=== PATIENT | male | born 1970 | race African-American/Black ===

== ENCOUNTER 2017-06-14 20:48 | Emergency (ER) | payer MEDICAID ==
[~2017-06-14] VITALS: Ht 188 cm; Wt 89.0 kg
[~2017-06-14 20:48] MED LIST: HIV meds; NAPR500T8 PO
[2017-06-14 21:02] VITALS: BP 134/89
--- NOTE | 2017-06-15 04:00 | ED.ADGEN ---
Past History Past Medical History: HIV Past Surgical History: Other Smoking: Cigarettes, Less than 1pk/day Alcohol Use: Rarely Drug Use: None Adult General Chief Complaint Chief Complaint Impacted right ear canal HPI HPI Patient is a 47-year-old -[place] male who presents with complaints of acted right ear canal and pressure the past 2 weeks. No other acute symptoms or complaints.[] Review of Systems Review of Systems Review symptoms as per history of present illness. Allergies Allergies Allergies Coded Allergies Type Severity Reaction Last Updated Verified No Known Drug Allergies 01/04/16 No Physical Exam Physical Exam Constitutional: Well developed, well nourished, no acute distress, non-toxic appearance. [] HENT: Normocephalic, atraumatic, bilateral external ears normal, right TM cerumen impaction oropharynx moist, no oral exudates, nose normal. [] Eyes: PERRLA, EOMI, conjunctiva normal, no discharge. [] Extremities: No tenderness, no cyanosis, no clubbing, ROM intact, no edema. [] Neurologic: Alert and oriented X 3, normal motor function, normal sensory function, no focal deficits noted. [] Psychologic: Affect normal, judgement normal, mood normal. [] Current Patient Data Vital Signs Vital Signs Date Time Temp Pulse Resp B/P (MAP) Pulse Ox O2 Delivery O2 Flow Rate FiO2 06/14/17 21:02 97.7 81 16 97 Room Air EKG EKG [] Radiology/Procedures Radiology/Procedures [] Course & Med Decision Making Course & Med Decision Making Pertinent Labs and Imaging studies reviewed. (See chart for details) [Patient instructed follow-up with PCP and/or he ENT for ear canal disimpaction] Final Impression Final Impression [1. R Ear cerumen impaction] Problems: Dragon Disclaimer Dragon Disclaimer This electronic medical record was generated, in whole or in part, using a voice recognition dictation system. ZAHRA RASHID DO Jun 15, 2017 04:00
== END 2017-06-14 21:13 | disposition home or self-care (01) ==
LOC: ER 20:48
DX: H61.21 Impacted cerumen, right ear (principal); F17.210 Nicotine dependence, cigarettes, uncomplicated; Z21 Asymptomatic human immunodeficiency virus [HIV] infection status
CPT/HCPCS: 99281

== ENCOUNTER 2018-04-29 19:04 | Emergency (ER) | payer MEDICAID ==
[~2018-04-29] VITALS: Ht 188 cm; Wt 94.8 kg
[2018-04-29 20:01] LABS: BASO # 0.1 x10^3/uL (0.0-0.2); BASO % 1 % (0-3); EOS # 0.1 x10^3/uL (0.0-0.7); EOS % 2 % (0-3); HEMATOCRIT 40.4 % (39.0-53.0); HEMOGLOBIN 13.4 g/dL (13.0-17.5); LYMPH # 2.8 x10^3/uL (1.0-4.8); LYMPH % 48 % (24-48); MEAN CORPUSCULAR HEMOGLOBIN 27 pg (25-35); MEAN CORPUSCULAR HGB CONC 33 g/dL (31-37); MEAN CORPUSCULAR VOLUME 81 fL (79-100); MONO # 0.7 x10^3/uL (0.0-1.1); MONO % 12 % (0-9); NEUT # 2.1 x10^3uL (1.8-7.7); NEUT % 36 % (31-73); PLATELET COUNT 270 x10^3/uL (140-400); RED BLOOD COUNT 4.99 x10^6/uL (4.30-5.70); RED CELL DISTRIBUTION WIDTH 15.2 % (11.5-14.5); WHITE BLOOD COUNT 5.8 x10^3/uL (4.0-11.0)
[2018-04-29 20:04] LABS: ALBUMIN 3.6 g/dL (3.4-5.0); ALBUMIN/GLOBULIN RATIO 0.8 (1.0-1.7); CALCIUM 8.7 mg/dL (8.5-10.1); GFR 95.7; POTASSIUM 3.5 mmol/L (3.5-5.1); TOTAL BILIRUBIN 0.3 mg/dL (0.2-1.0)
[2018-04-29] MEDS: IV NORMAL SALINE 1,000ML 1,000 ML IV ONE (20:15)
--- NOTE | 2018-04-29 20:26 | RAD ---
PQRS Compliance statement: One or more of the following individualized dose reduction techniques were utilized for this examination: 1. Automated exposure control. 2. Adjustment of the mA and/or kV according to patient size. 3. Use of iterative reconstruction technique. Indication:Dizziness, Hx hypertension TECHNIQUE: CT head without IV contrast COMPARISON:None FINDINGS: No pathologic extra-axial or intra-axial fluid collection. The ventricles and basal cisterns are within normal limits. No acute intracranial bleed. No focal loss of kunz-white differentiation. Visualized orbits within normal limits. 4.0 x 1.3 cm posterior scalp lipoma. No suspicious calvarial lesion. Visualized paranasal sinuses and mastoid air cells are clear. IMPRESSION: No acute intracranial process. If concern for acute ischemic stroke is high, please consider MRI brain. Electronically signed by: Sumit Mahmood DO (04/29/2018 8:23 PM) [facility]
[2018-04-29 20:30] LABS: BACTERIA,URINE 0 /HPF (0-FEW); BILIRUBIN,URINE NEG (NEG); CLARITY,URINE CLEAR; COLOR,URINE YELLOW; GLUCOSE,URINE NEG (NEG); NITRITE,URINE NEG (NEG); SQUAMOUS EPITHELIAL CELL,UR OCC /LPF; UROBILINOGEN,URINE 2 mg/dL (0.2 mg/dL); WBC,URINE OCC /HPF (0-4)
[2018-04-29 20:32] LABS: AMPHETAMINE/METHAMPHETAMINE NEG (NEG); BARBITURATES NEG (NEG); BENZODIAZEPINES NEG (NEG); CANNABINOIDS NEG (NEG); COCAINE POS (NEG); METHADONE NEG (NEG); OPIATES NEG (NEG); PHENCYCLIDINE NEG (NEG)
--- NOTE | 2018-04-29 20:57 | PHYS DOC ---
Past History Past Medical History: HIV, Hypertension Past Surgical History: Hysterectomy Smoking: Cigarettes, Less than 1pk/day Alcohol Use: Heavy Additional Alcohol Information: 4 drinks a day, usually wine Drug Use: None Adult General Chief Complaint Chief Complaint: DIZZY/LIGHT HEADED HPI HPI 48-year-old male presents with dizziness. Patient states he has had intermittent dizziness for the last couple weeks. He was diagnosed with hypertension recently placed on medications. He has not started his medications yet. Today the patient feels like he has been slightly more dizzy. He describes this as a lightheaded, off balance feeling. He denies any numbness, tingling, weakness, headache. The patient does admit to drinking "a moderate amount" of alcohol yesterday. He does not usually drink heavily. He denies fever or chills. Review of Systems Review of Systems Constitutional: Denies fever or chills [] Eyes: Denies change in visual acuity, redness, or eye pain [] HENT: Denies nasal congestion or sore throat [] Respiratory: Denies cough or shortness of breath [] Cardiovascular: No additional information not addressed in HPI [] GI: Denies abdominal pain, nausea, vomiting, bloody stools or diarrhea [] : Denies dysuria or hematuria [] Musculoskeletal: Denies back pain or joint pain [] Integument: Denies rash or skin lesions [] Neurologic: Dizziness[] Endocrine: Denies polyuria or polydipsia [] All other systems were reviewed and found to be within normal limits, except as documented in this note. Current Medications Current Medications Current Medications Medications (Trade) Dose Ordered Sig/[facility] Start Time Stop Time Status Last Admin Dose Admin Sodium Chloride 1,000 ml @ 1,000 mls/hr 1X ONCE 04/29/18 20:00 04/29/18 20:59 04/29/18 20:15 1,000 MLS/HR Allergies Allergies Allergies Coded Allergies Type Severity Reaction Last Updated Verified No Known Drug Allergies 01/04/16 No Physical Exam Physical Exam Constitutional: Well developed, well nourished, no acute distress, non-toxic appearance. [] HENT: Normocephalic, atraumatic, bilateral external ears normal, oropharynx moist, no oral exudates, nose normal. [] Eyes: PERRLA, EOMI, conjunctiva normal, no discharge. [] Neck: Normal range of motion, no tenderness, supple, no stridor. [] Cardiovascular:Heart rate regular rhythm, no murmur [] Lungs & Thorax: Bilateral breath sounds clear to auscultation [] Abdomen: Bowel sounds normal, soft, no tenderness, no masses, no pulsatile masses. [] Skin: Warm, dry, no erythema, no rash. [] Back: No tenderness, no CVA tenderness. [] Extremities: No tenderness, no cyanosis, no clubbing, ROM intact, no edema. [] Neurologic: Alert and oriented X 3, normal motor function, normal sensory function, no focal deficits noted. [] Psychologic: Affect normal, judgement normal, mood normal. [] Current Patient Data Vital Signs Vital Signs Date Time Temp Pulse Resp B/P (MAP) Pulse Ox O2 Delivery O2 Flow Rate FiO2 04/29/18 19:10 98.8 80 20 96 Room Air Lab Results Laboratory Tests Test 04/29/18 19:20 04/29/18 20:18 White Blood Count 5.8 x10^3/uL (4.0-11.0) Red Blood Count 4.99 x10^6/uL (4.30-5.70) Hemoglobin 13.4 g/dL (13.0-17.5) Hematocrit 40.4 % (39.0-53.0) Mean Corpuscular Volume 81 fL (79-100) Mean Corpuscular Hemoglobin 27 pg (25-35) Mean Corpuscular Hemoglobin Concent 33 g/dL (31-37) Red Cell Distribution Width 15.2 % (11.5-14.5) H Platelet Count 270 x10^3/uL (140-400) Neutrophils (%) (Auto) 36 % (31-73) Lymphocytes (%) (Auto) 48 % (24-48) Monocytes (%) (Auto) 12 % (0-9) H Eosinophils (%) (Auto) 2 % (0-3) Basophils (%) (Auto) 1 % (0-3) Neutrophils # (Auto) 2.1 x10^3uL (1.8-7.7) Lymphocytes # (Auto) 2.8 x10^3/uL (1.0-4.8) Monocytes # (Auto) 0.7 x10^3/uL (0.0-1.1) Eosinophils # (Auto) 0.1 x10^3/uL (0.0-0.7) Basophils # (Auto) 0.1 x10^3/uL (0.0-0.2) Sodium Level 140 mmol/L (136-145) Potassium Level 3.5 mmol/L (3.5-5.1) Chloride Level 103 mmol/L (98-107) Carbon Dioxide Level 29 mmol/L (21-32) Anion Gap 8 (6-14) Blood Urea Nitrogen 10 mg/dL (8-26) Creatinine 1.0 mg/dL (0.7-1.3) Estimated GFR (Cockcroft-Gault) 95.7 BUN/Creatinine Ratio 10 (6-20) Glucose Level 114 mg/dL (70-99) H Calcium Level 8.7 mg/dL (8.5-10.1) Total Bilirubin 0.3 mg/dL (0.2-1.0) Aspartate Amino Transferase (AST) 36 U/L (15-37) Alanine Aminotransferase (ALT) 34 U/L (16-63) Alkaline Phosphatase 78 U/L (46-116) Total Protein 8.0 g/dL (6.4-8.2) Albumin 3.6 g/dL (3.4-5.0) Albumin/Globulin Ratio 0.8 (1.0-1.7) L Urine Opiates Screen Neg (NEG) Urine Methadone Screen Neg (NEG) Urine Barbiturates Neg (NEG) Urine Phencyclidine Screen Neg (NEG) Urine Amphetamine/Methamphetamine Neg (NEG) Urine Benzodiazepines Screen Neg (NEG) Urine Cocaine Screen Pos (NEG) Urine Cannabinoids Screen Neg (NEG) Ethyl Alcohol Level < 10 mg/dL (0-10) Urine Ethyl Alcohol Neg (NEG) Urine Collection Type Unknown Urine Color Yellow Urine Clarity Clear Urine pH 6.5 Urine Specific Randall 1.010 Urine Protein Neg (NEG-TRACE) Urine Glucose (UA) Neg mg/dL (NEG) Urine Ketones (Stick) Neg mg/dL (NEG) Urine Blood Small (NEG) Urine Nitrite Neg (NEG) Urine Bilirubin Neg (NEG) Urine Urobilinogen Dipstick 2 mg/dL (0.2 mg/dL) Urine Leukocyte Esterase Neg (NEG) Urine RBC 11-20 /HPF (0-2) Urine WBC Occ /HPF (0-4) Urine Squamous Epithelial Cells Occ /LPF Urine Bacteria 0 /HPF (0-FEW) EKG EKG [] Radiology/Procedures Radiology/Procedures [] Impressions: PQRS Compliance statement: One or more of the following individualized dose reduction techniques were utilized for this examination: 1. Automated exposure control. 2. Adjustment of the mA and/or kV according to patient size. 3. Use of iterative reconstruction technique. Indication:Dizziness, Hx hypertension TECHNIQUE: CT head without IV contrast COMPARISON:None FINDINGS: No pathologic extra-axial or intra-axial fluid collection. The ventricles and basal cisterns are within normal limits. No acute intracranial bleed. No focal loss of kunz-white differentiation. Visualized orbits within normal limits. 4.0 x 1.3 cm posterior scalp lipoma. No suspicious calvarial lesion. Visualized paranasal sinuses and mastoid air cells are clear. IMPRESSION: No acute intracranial process. If concern for acute ischemic stroke is high, please consider MRI brain. Electronically signed by: Sumit Benitez DO (04/29/2018 8:23 PM) [facility] DICTATED AND SIGNED BY: SUMIT BENITEZ DO DATE: 04/29/182012 CC: ZAHRA ALVAREZ DO; PCP,YADIRA Course & Med Decision Making Course & Med Decision Making Pertinent Labs and Imaging studies reviewed. (See chart for details) The patient's labs are unremarkable. His urinalysis is negative for infection. His urine drug screen shows an alcohol less than 10, but it is positive for cocaine. I suspect the cocaine use is the reason the patient feels "weird and dizzy". It is likely contributing to his elevated blood pressure as well. I advised he stop using drugs. He is stable for discharge at this time [] Dragon Disclaimer Dragon Disclaimer This electronic medical record was generated, in whole or in part, using a voice recognition dictation system. Departure Departure: Referrals: PCP,YADIRA (PCP) ZAHRA ALVAREZ DO Apr 29, 2018 20:57
[2018-04-29 21:10] VITALS: BP 171/84
== END 2018-04-29 21:15 | disposition home or self-care (01) ==
LOC: ER 19:04
DX: R42 Dizziness and giddiness (principal); F14.90 Cocaine use, unspecified, uncomplicated; I10 Essential (primary) hypertension; F17.210 Nicotine dependence, cigarettes, uncomplicated; F10.20 Alcohol dependence, uncomplicated; Y90.0 Blood alcohol level of less than 20 mg/100 ml
CPT/HCPCS: 36415; 70450; 80053; 80307; 81001; 85025; 96360; G0480; 99285-25; G0479; J7030

== ENCOUNTER 2018-10-16 09:02 | Emergency (ER) | payer OTHER, MEDICAID ==
[~2018-10-16] VITALS: Ht 188 cm; Wt 95.6 kg
[2018-10-16 09:05] VITALS: BP 146/102
[2018-10-16 09:51] LABS: BASO # 0.1 x10^3/uL (0.0-0.2); BASO % 1 % (0-3); EOS # 0.1 x10^3/uL (0.0-0.7); EOS % 1 % (0-3); HEMATOCRIT 43.9 % (39.0-53.0); HEMOGLOBIN 14.7 g/dL (13.0-17.5); LYMPH # 3.7 x10^3/uL (1.0-4.8); LYMPH % 40 % (24-48); MEAN CORPUSCULAR HEMOGLOBIN 28 pg (25-35); MEAN CORPUSCULAR HGB CONC 34 g/dL (31-37); MEAN CORPUSCULAR VOLUME 82 fL (79-100); MONO # 0.5 x10^3/uL (0.0-1.1); MONO % 5 % (0-9); NEUT # 4.9 x10^3uL (1.8-7.7); NEUT % 53 % (31-73); PLATELET COUNT 309 x10^3/uL (140-400); RED BLOOD COUNT 5.32 x10^6/uL (4.30-5.70); WHITE BLOOD COUNT 9.2 x10^3/uL (4.0-11.0)
--- NOTE | 2018-10-16 10:03 | RAD ---
CT brain without contrast. HISTORY: Numbness of both hands, paresthesias CT scan of the brain was done without contrast. Sinuses are clear. There is no skull fracture. There is no intracranial hemorrhage or subdural hematoma. There is no mass or shift of the midline. An acute CVA is not identified. Ventricles are normal in size. There has been no change compared to the old study from April 29, 2018. IMPRESSION: 1. No intracranial hemorrhage or mass or acute finding noted. PQRS Compliance Statement: One or more of the following individualized dose reduction techniques were utilized for this examination: 1. Automated exposure control 2. Adjustment of the mA and/or kV according to patient size 3. Use of iterative reconstruction technique Electronically signed by: Chuy Nicole MD (10/16/2018 10:01 AM) [facility]
[2018-10-16 10:05] LABS: ALBUMIN/GLOBULIN RATIO 0.8 (1.0-1.7); CALCIUM 8.8 mg/dL (8.5-10.1); CREATININE 0.8 mg/dL (0.7-1.3); GFR 123.8; MAGNESIUM 1.8 mg/dL (1.8-2.4); POTASSIUM 3.6 mmol/L (3.5-5.1); TOTAL BILIRUBIN 0.2 mg/dL (0.2-1.0); TOTAL PROTEIN 8.8 g/dL (6.4-8.2)
[2018-10-16 10:39] LABS: BARBITURATES NEG (NEG); BENZODIAZEPINES NEG (NEG); CANNABINOIDS NEG (NEG); COCAINE POS (NEG); METHADONE NEG (NEG); OPIATES NEG (NEG); PHENCYCLIDINE NEG (NEG)
[2018-10-16 10:41] LABS: AMPHETAMINE/METHAMPHETAMINE NEG (NEG)
[2018-10-16 10:49] LABS: BILIRUBIN,URINE NEG (NEG); CLARITY,URINE CLEAR; COLOR,URINE YELLOW; GLUCOSE,URINE NEG (NEG)
[2018-10-16 10:50] LABS: BACTERIA,URINE 0 /HPF (0-FEW); NITRITE,URINE NEG (NEG); SQUAMOUS EPITHELIAL CELL,UR OCC /LPF; UROBILINOGEN,URINE 0.2 mg/dL (0.2 mg/dL); WBC,URINE OCC /HPF (0-4)
--- NOTE | 2018-10-16 10:57 | PHYS DOC ---
Past History Past Medical History: HIV, Hypertension, Prostatitis Past Surgical History: No Surgical History Smoking: Cigarettes, Less than 1pk/day Alcohol Use: Heavy Drug Use: None Adult General Chief Complaint Chief Complaint: Hands numbness HPI HPI Patient is a 48 year old male who presents with complaining of bilateral hands numbness since midnight. Patient has history of HIV since 2006 without eighths and taking 1 anti-HIV medication. Patient also drinking alcohol heavily for the last several years. Patient states for the last month and half he has had trouble with his walking and also intermittent episodes of bilateral fourth and fifth finger numbness with extension to his wrists as a mild intermittent problem that getting constant since midnight and he thinks he had stroke. Patient denies headache, focal weakness, chest pain, shortness of breath, blurred vision, fever and chills, nausea and vomiting. Review of Systems Review of Systems Constitutional: Denies fever or chills [] Eyes: Denies change in visual acuity, redness, or eye pain [] HENT: Denies nasal congestion or sore throat [] Respiratory: Denies cough or shortness of breath [] Cardiovascular: No additional information not addressed in HPI [] GI: Denies abdominal pain, nausea, vomiting, bloody stools or diarrhea [] : Denies dysuria or hematuria [] Musculoskeletal: Denies back pain or joint pain [] Integument: Denies rash or skin lesions [] Neurologic: Denies headache, focal weakness, reports sensory changes [] Endocrine: Denies polyuria or polydipsia [] All other systems were reviewed and found to be within normal limits, except as documented in this note. Allergies Allergies Allergies Coded Allergies Type Severity Reaction Last Updated Verified No Known Drug Allergies 01/04/16 No Physical Exam Physical Exam Constitutional: Well developed, well nourished, mild acute distress, non-toxic appearance. [] HENT: Normocephalic, atraumatic, oropharynx moist, no oral exudates, nose normal. [] Eyes: PERRLA, EOMI, conjunctiva normal, no discharge. [] Neck: Normal range of motion, no tenderness, supple, no stridor. [] Cardiovascular:Heart rate regular rhythm, no murmur [] Lungs & Thorax: Bilateral breath sounds clear to auscultation [] Abdomen: Bowel sounds normal, soft, no tenderness, no masses, no pulsatile masses. [] Skin: Warm, dry, no erythema, no rash. [] Back: No tenderness, no CVA tenderness. [] Extremities: No tenderness, no cyanosis, no clubbing, ROM intact, no edema. [] Neurologic: Alert and oriented X 3, normal motor function, subjective decrease of sensation in bilateral fourth and fifth fingers, no focal deficits noted. [] Psychologic: Affect anxious, judgement normal, mood normal. [] Current Patient Data Vital Signs Vital Signs Date Time Temp Pulse Resp B/P (MAP) Pulse Ox O2 Delivery O2 Flow Rate FiO2 10/16/18 09:05 98.4 107 24 95 Room Air Lab Results Laboratory Tests Test 10/16/18 09:34 10/16/18 10:20 White Blood Count 9.2 x10^3/uL (4.0-11.0) Red Blood Count 5.32 x10^6/uL (4.30-5.70) Hemoglobin 14.7 g/dL (13.0-17.5) Hematocrit 43.9 % (39.0-53.0) Mean Corpuscular Volume 82 fL (79-100) Mean Corpuscular Hemoglobin 28 pg (25-35) Mean Corpuscular Hemoglobin Concent 34 g/dL (31-37) Red Cell Distribution Width 16.0 % (11.5-14.5) H Platelet Count 309 x10^3/uL (140-400) Neutrophils (%) (Auto) 53 % (31-73) Lymphocytes (%) (Auto) 40 % (24-48) Monocytes (%) (Auto) 5 % (0-9) Eosinophils (%) (Auto) 1 % (0-3) Basophils (%) (Auto) 1 % (0-3) Neutrophils # (Auto) 4.9 x10^3uL (1.8-7.7) Lymphocytes # (Auto) 3.7 x10^3/uL (1.0-4.8) Monocytes # (Auto) 0.5 x10^3/uL (0.0-1.1) Eosinophils # (Auto) 0.1 x10^3/uL (0.0-0.7) Basophils # (Auto) 0.1 x10^3/uL (0.0-0.2) Sodium Level 139 mmol/L (136-145) Potassium Level 3.6 mmol/L (3.5-5.1) Chloride Level 102 mmol/L (98-107) Carbon Dioxide Level 27 mmol/L (21-32) Anion Gap 10 (6-14) Blood Urea Nitrogen 6 mg/dL (8-26) L Creatinine 0.8 mg/dL (0.7-1.3) Estimated GFR (Cockcroft-Gault) 123.8 BUN/Creatinine Ratio 8 (6-20) Glucose Level 117 mg/dL (70-99) H Calcium Level 8.8 mg/dL (8.5-10.1) Magnesium Level 1.8 mg/dL (1.8-2.4) Total Bilirubin 0.2 mg/dL (0.2-1.0) Aspartate Amino Transferase (AST) 19 U/L (15-37) Alanine Aminotransferase (ALT) 25 U/L (16-63) Alkaline Phosphatase 84 U/L (46-116) Creatine Kinase 172 U/L (39-308) Troponin I Quantitative < 0.017 ng/mL (0-0.055) Total Protein 8.8 g/dL (6.4-8.2) H Albumin 4.0 g/dL (3.4-5.0) Albumin/Globulin Ratio 0.8 (1.0-1.7) L Ethyl Alcohol Level < 10 mg/dL (0-10) Urine Opiates Screen Neg (NEG) Urine Methadone Screen Neg (NEG) Urine Barbiturates Neg (NEG) Urine Phencyclidine Screen Neg (NEG) Urine Amphetamine/Methamphetamine Neg (NEG) Urine Benzodiazepines Screen Neg (NEG) Urine Cocaine Screen Pos (NEG) Urine Cannabinoids Screen Neg (NEG) Urine Ethyl Alcohol Neg (NEG) EKG EKG [] Radiology/Procedures Radiology/Procedures [address] [address] IMAGING REPORT Signed PATIENT: JONO ALLISON ACCOUNT: [id number] : 1970 LOCATION: ER AGE: 48 SEX: M EXAM STATUS: REG ER ORD. PHYSICIAN: MNIO RAMESH MD REASON: paresthesia PROCEDURE: CT HEAD WO CONTRAST CT brain without contrast. HISTORY: Numbness of both hands, paresthesias CT scan of the brain was done without contrast. Sinuses are clear. There is no skull fracture. There is no intracranial hemorrhage or subdural hematoma. There is no mass or shift of the midline. An acute CVA is not identified. Ventricles are normal in size. There has been no change compared to the old study from April 29, 2018. IMPRESSION: 1. No intracranial hemorrhage or mass or acute finding noted. RS Compliance Statement: One or more of the following individualized dose reduction techniques were utilized for this examination: 1. Automated exposure control 2. Adjustment of the mA and/or kV according to patient size 3. Use of iterative reconstruction technique Electronically signed by: Roxanne Newby MD (10/16/2018 10:01 AM) [facility] DICTATED AND SIGNED BY: ROXANNE NEWBY MD DATE: 10/16/18 0958 CC: MINO RAMESH MD; PCP,UNKNOWN ~ Course & Med Decision Making Course & Med Decision Making Pertinent Labs and Imaging studies reviewed. (See chart for details) Evaluation of patient in ER showed 48-year-old male patient with history of HIV and complaining of numbness of his hand. Patient denies using drugs but his urine showing positive cocaine the same as his previous emergency room visits in March 2018. Labs and CT head was unremarkable. Patient instructed to follow- up with his HIV specialist and also quit drinking alcohol and using drugs and smoking cigarettes. Urine drug screen was positive for cocaine and patient previously denied using cocaine but later on admitted to use cocaine 2 days ago. Dragon Disclaimer Dragon Disclaimer This electronic medical record was generated, in whole or in part, using a voice recognition dictation system. Departure Departure: Impression: Primary Impression: Paresthesia of hand, bilateral Additional Impressions: Cocaine abuse Tobacco abuse Tobacco abuse counseling History of HIV-I infection History of hypertension Alcohol abuse Disposition: HOME, SELF-CARE (@1054) Condition: STABLE Referrals: PCP,UNKNOWN (PCP) Patient Instructions: Alcohol Problems, Cocaine Abuse and Chemical Dependency, Paresthesia, Smoking Cessation, Tips For Success Additional Instructions: Follow-up with your primary care physician in 3-5 days Return to ER if not getting better Problem Qualifiers MINO RAMESH MD Oct 16, 2018 10:57
== END 2018-10-16 10:59 | disposition home or self-care (01) ==
LOC: ER 09:02
DX: R20.2 Paresthesia of skin (principal); I10 Essential (primary) hypertension; F12.10 Cannabis abuse, uncomplicated; F17.210 Nicotine dependence, cigarettes, uncomplicated; F10.20 Alcohol dependence, uncomplicated; Z71.6 Tobacco abuse counseling; Y90.0 Blood alcohol level of less than 20 mg/100 ml
CPT/HCPCS: 36415; 70450; 80053; 80307; 81001; 82550; 83735; 84484; 85025; 99284; G0480

== ENCOUNTER 2018-12-25 04:31 | Emergency (ER) | payer OTHER ==
--- NOTE | 2018-12-25 04:33 | ED.ADGEN ---
Past History Past Medical History: HIV, Hypertension, Prostatitis Past Surgical History: No Surgical History Smoking: Cigarettes, Less than 1pk/day Alcohol Use: Heavy Drug Use: Cocaine Adult General Chief Complaint Chief Complaint "... I was cleaning my in my car...and coughing.. so I reached down to get bottle of water.. I accident grabbed the bottle .. but soon as it my mouth.. I knew it was not water.. I spit it out.. and vomited.. and rinse my mouth really well.. but I was worried .. so I came in to get checked... " HPI HPI Patient is a 48 year old male who presents with above hx of accidently in taking a mouth full of [employer]. Pt. accident ingested a mouth of viny l guard. Pt. has no symptoms but worried the more he thought about it. It has been in excess of an hour and half since ingestion. Pt. has medical hx. of HIV since 2005, on suppression. Last CD-4 normal and viral count undetectable. History of hypertension and prostatitis. Pt. does smoke, drinks alcohol. Patient normally follows at . Review of Systems Review of Systems Constitutional: Denies fever or chills [] Eyes: Denies change in visual acuity, redness, or eye pain [] HENT: Denies nasal congestion or sore throat [] Respiratory: History cough Cardiovascular: No additional information not addressed in HPI [] GI: Denies abdominal pain, nausea, vomiting, bloody stools or diarrhea [] : Denies dysuria or hematuria [] Musculoskeletal: Denies back pain or joint pain [] Integument: Denies rash or skin lesions [] Neurologic: Denies headache, focal weakness or sensory changes [] Endocrine: Denies polyuria or polydipsia [] All other systems were reviewed and found to be within normal limits, except as documented in this note. Family History Family History Noncontributory Current Medications Current Medications See nursing for home meds Allergies Allergies Allergies Coded Allergies Type Severity Reaction Last Updated Verified No Known Drug Allergies 01/04/16 No Physical Exam Physical Exam Constitutional: no acute distress, non-toxic appearance. [] HENT: Normocephalic, atraumatic, bilateral external ears normal, oropharynx moist, no oral exudates, nose normal. Dentures Eyes: PERRLA, EOMI, conjunctiva normal, no discharge. [] Neck: Normal range of motion, no tenderness, supple, no stridor. [] Cardiovascular:Heart rate regular rhythm, no murmur [] Lungs & Thorax: Bilateral breath sounds equal apex scattered wheezes auscultation [] Abdomen: Bowel sounds normal, soft, no tenderness, no masses, no pulsatile masses. [] Skin: Warm, dry, no erythema, no rash. [] Back: No tenderness, no CVA tenderness. [] Extremities: No tenderness, no cyanosis, no clubbing, ROM intact, no edema. [] Neurologic: Alert and oriented X 3, normal motor function, normal sensory function, no focal deficits noted. [] Psychologic: Affect anxious, judgement normal, mood normal. [] Current Patient Data Vital Signs Vital Signs Date Time Temp Pulse Resp B/P (MAP) Pulse Ox O2 Delivery O2 Flow Rate FiO2 12/25/18 04:40 62 18 96 Room Air EKG EKG [] Radiology/Procedures Radiology/Procedures [] Course & Med Decision Making Course & Med Decision Making Pertinent Labs and Imaging studies reviewed. (See chart for details). Reviewed findings with poison control advised only symptomatic care. [] Final Impression Final Impression 1. Accidental ingestion of [employer] auto guard vinyl product 2. History of HIV since 2005 3. Tobacco alcohol use\\ 4. Hypertension[] Dragon Disclaimer Dragon Disclaimer This electronic medical record was generated, in whole or in part, using a voice recognition dictation system. Discharge Summary Visit Information Final Diagnosis Problems Medical Problems: (1) Accidental ingestion of substance Status: Acute Brief Hospital Course Allergies Allergies Coded Allergies Type Severity Reaction Last Updated Verified No Known Drug Allergies 01/04/16 No Vital Signs Vital Signs Date Time Temp Pulse Resp B/P (MAP) Pulse Ox O2 Delivery O2 Flow Rate FiO2 12/25/18 04:40 62 18 96 Room Air Brief Hospital Course Mr. Allan is a 48 old male who presented with accidental ingestion of [employer] Vinyl protectant. Discharge Information Condition at Discharge: Improved, Stable Disposition/Orders: D/C to Home Dischare Medications Active Scripts Active Naproxen 500 Mg Tablet. 1 Tab PO Q12HR PRN Reported [HIV meds] Dragon Disclaimer This chart was dictated in whole or in part using Voice Recognition software in a busy, high-work load, and often noisy Emergency Department environment. It may contain unintended and wholly unrecognized errors or omissions. ELLEN WOOD MD Dec 25, 2018 04:33
[2018-12-25 04:40] VITALS: BP 144/94
== END 2018-12-25 05:05 | disposition home or self-care (01) ==
LOC: ER 04:31
DX: T65.891A Toxic effect of other specified substances, accidental (unintentional), initial encounter (principal); R05 Cough; I10 Essential (primary) hypertension; F17.210 Nicotine dependence, cigarettes, uncomplicated; F10.20 Alcohol dependence, uncomplicated; Y90.9 Presence of alcohol in blood, level not specified; Y92.89 Other specified places as the place of occurrence of the external cause
CPT/HCPCS: 99281

== ENCOUNTER 2020-08-26 21:29 | Emergency (ER) | payer OTHER ==
[~2020-08-26] VITALS: Ht 188 cm; Wt 96.5 kg
[2020-08-26] MEDS ORDERED: LABETALOL 20 MG/4 ML DISP.SYRIN. ONE (21:54)
[2020-08-26] MEDS ORDERED: ETOMIDATE 40 MG/20 ML VIAL. INJ ONE (22:15)
[2020-08-26] MEDS ORDERED: ROCURONIUM 50 MG/5 ML VIAL. IV ONE (22:15)
[2020-08-26] MEDS ORDERED: PROPOFOL 100 ML IV PRN (22:15)
[2020-08-26] MEDS ORDERED: LABETALOL 20 MG/4 ML DISP.SYRIN. IVP ONE (22:15)
--- NOTE | 2020-08-26 22:15 | RAD ---
Exam: Chest one view INDICATION: Post code TECHNIQUE: Frontal view of the chest Comparisons: None FINDINGS: Endotracheal tube with tip at the prosper. Heart is enlarged. Pulmonary vessels are within normal limits. Diffuse patchy bilateral airspace disease. No pleural effusion. IMPRESSION: 1. Endotracheal tube tip at the prosper, recommend retraction. 2. Diffuse patchy bilateral airspace disease. Electronically signed by: Jaren Humphreys MD (08/26/2020 10:12 PM) [facility]
[2020-08-26 22:24] VITALS: BP 226/156
--- NOTE | 2020-08-26 22:27 | RAD ---
EXAM: AP View of the chest DATE: 08/26/2020 10:05 PM INDICATION: Reason: s/p adjustment of ETT (22cm at gum line) / Spl. Instructions: / History: COMPARISON: 08/26/2020 FINDINGS/ IMPRESSION: ET tube tip terminates approximately 4 cm above the prosper. Bilateral parenchymal opacities are uncha nged. Cardiac mediastinal silhouette is also stable. Small left pleural effusion. No pneumothorax. Electronically signed by: Harpreet Vickers MD (08/26/2020 10:25 PM) [facility]
[2020-08-26] MEDS ORDERED: IV NORMAL SALINE 1,000ML 1,000 ML IV ONE (22:30)
--- NOTE | 2020-08-26 22:41 | PHYS DOC ---
Past History Past Medical History: CAD, HIV, Hypertension, MT, Prostatitis Additional Past Medical Histor: MT in Apr 2020 Past Medical History Limited secondary to cardiopulmonary arrest Past Surgical History: Pacemaker Additional Past Surgical Histo: MT s/p stent and pacemaker Apr 2020 Past Surgical History Limited secondary to cardiopulmonary arrest Smoking: Cigarettes, Less than 1pk/day Alcohol Use: Heavy Additional Alcohol Information: a few Smirnoff ices a day Drug Use: Cocaine Social History Limited secondary to cardiopulmonary arrest General Adult EDM: Chief Complaint: CPR/FULL ARREST HPI: HPI: Patient is a 50 year old male wiith pmh of HIV and prior CAD with stent placement presents via EMS following cardiopulmonary arrest at home. Around 2099, patient and his partner Ritchie were watching TV on the couch when the patient suddenly started breathing more deeply and gasping for air. His partner described the patient's eyes as appearing wide and glassy. His partner was unable to feel a pulse on patient's neck or wrist and so put him on the floor, called 911, and started chest compressions. Partner denied any concerns for medication overdoses or other illicit drug ingestions. Pt had about 3x "Smirnoff Ices" at home, prior to the event. Partner denies fever, cough, congestion, or known sick contacts at home. Denies known exposure to COVID-19. Paramedics arrived within a few minutes, and shocked the patient once with the AED with return of spontaneous circulation. EMS concerned for patient's "pinpoint" pupils. EMS gave Narcan in route with limited effect. Partner reports patient has a "pacemaker" that was placed at [place]. History of present illness limited secondary to cardiopulmonary arrest. Review of Systems: Review of Systems: Review of systems limited secondary to cardiopulmonary arrest. Family History: Family History: Unable to obtain due to patient's state. Current Medications: Current Meds: Current Medications Medications (Trade) Dose Ordered Sig/Ami Start Time Stop Time Status Last Admin Dose Admin Etomidate (Amidate) 20 mg 1X ONCE 08/26/20 22:15 08/26/20 22:16 UNV Fentanyl Citrate (Fentanyl 2ml Vial) 100 mcg 1X ONCE 08/26/20 22:15 08/26/20 22:16 UNV Labetalol HCl (Normodyne) 10 mg 1X ONCE 08/26/20 22:15 08/26/20 22:16 UNV Propofol 100 ml @ 0 mls/hr CONT PRN 08/26/20 22:15 UNV Rocuronium [place]le (Zemuron) 50 mg 1X ONCE 08/26/20 22:15 08/26/20 22:16 UNV Allergies: Allergies: Allergies Coded Allergies Type Severity Reaction Last Updated Verified No Known Drug Allergies 01/04/16 No Physical Exam: PE: Constitutional: Well developed, well nourished, patient in acute respiratory distress, no voluntary movement HENT: Normocephalic, atraumatic Eyes: Pupils 4mm and sluggish, conjunctiva normal, no discharge Neck: No crepitance, supple Lungs & Thorax: Agonal respirations without assisted ventilation with bag valve mask, no crepitance Abdomen: Soft, fullness noted to epigastrum Skin: Warm, dry, no erythema, no rash Extremities: No tenderness, ROM intact, no edema Neurologic: Unresponsive, GCS 3, Psychologic: Unable to obtain EKG: EKG: @2148 Tachycardia with wide complex QRS consistent for LBBB at 131bpm, QRS 152ms , QT/QTc 340/507ms @0010 Sinus rhythm at 81bpm, LBBB, t wave inversion V5-V6, QRS 156ms, QT/QTc 454/528ms Radiology/Procedures: Radiology/Procedures: PROCEDURE: CHEST AP ONLY Exam: Chest one view INDICATION: Post code TECHNIQUE: Frontal view of the chest Comparisons: None FINDINGS: Endotracheal tube with tip at the prosper. Heart is enlarged. Pulmonary vessels are within normal limits. Diffuse patchy bilateral airspace disease. No pleural effusion. IMPRESSION: 1. Endotracheal tube tip at the prosper, recommend retraction. 2. Diffuse patchy bilateral airspace disease. Electronically signed by: Jaren Humphreys MD (08/26/2020 10:12 PM) [facility] PROCEDURE: CHEST AP ONLY EXAM: AP View of the chest DATE: 08/26/2020 10:05 PM INDICATION: Reason: s/p adjustment of ETT (22cm at gum line) / Spl. Instructions: / History: COMPARISON: 08/26/2020 FINDINGS/ IMPRESSION: ET tube tip terminates approximately 4 cm above the prosper. Bilateral parenchymal opacities are unchanged. Cardiac mediastinal silhouette is also stable. Small left pleural effusion. No pneumothorax. Electronically signed by: Harpreet Vickers MD (08/26/2020 10:25 PM) [facility]: CT HEAD WO CONTRAST PQRS Compliance Statement: One or more of the following individualized dose reduction techniques were utilized for this examination: 1. Automated exposure control 2. Adjustment of the mA and/or kV according to patient size 3. Use of iterative reconstruction technique CT head without contrast 08/26/2020 11:24 PM INDICATION: Cardiopulmonary arrest COMPARISON: CT head 11/13/2018 TECHNIQUE: Multiple axial CT images of the head were obtained from skull base through the vertex without intravenous contrast. FINDINGS: Head: Ventricles, sulci and basal cisterns are within normal limits. There is no hydrocephalus. Dhaliwal-white matter differentiation is normal. There is no acute intracranial hemorrhage. There is no mass, mass effect or midline shift. Posterior fossa is normal in appearance. Visualized portions of the orbits are normal. Paranasal sinuses are well aerated. Mastoid air cells are well aerated. Scalp and calvaria are normal. And mild hazy attenuation identified along the superior margin the right parotid gla nd, incompletely profiled on this examination. IMPRESSION: No acute intracranial hemorrhage. No definite cerebral edema is identified. Minimal hazy attenuation within the superior aspect of the right parotid gland is only partially profiled. Correlate with any local inflammatory changes. Electronically signed by: Dea Orellana MD (08/27/2020 12:07 AM) [facility] PROCEDURE: XR CHEST 1V, XR ABDOMEN 1V 08/27/2020 1:47 AM INDICATION: NG tube placement COMPARISON: 08/18/2020 TECHNIQUE: Portable frontal view of the chest is provided. 2 supine views of abdomen are provided. FINDINGS: The cardiomediastinal silhouette is enlarged, stable. Left chest wall cardiac monitoring device is noted. Endotracheal tube is in similar position. Nasogastric tube is identified with the side port projecting over the gastric lumen. Perihilar predominantly interstitial airspace disease is noted with fruit aeration of the lung bases compared to prior examination. No pleural effusions or pneumothorax. There is moderate distention of the stomach. Dilated small bowel loops identified in the central abdomen measuring up to 3.4 cm. No suspicious osseous abnormality. IMPRESSION: 1. Improved aeration of the lungs compared to prior examination with persistent perihilar interstitial changes as may be seen with interstitial edema or interstitial pneumonitis. Stable cardiomegaly. 2. Endotracheal tube is in similar position. 3. Nasogastric tube is identified with side port at the gastric lumen. Moderate gaseous distention of stomach is noted. 4. Dilated small bowel loops in the central abdomen may represent ileus versus developing small bowel obstruction. Short-term follow-up radiographs could be of benefit. Electronically signed by: Dea Orellana MD (08/27/2020 2:16 AM) [facility] Heart Score: HEART Score for Chest Pain: HEART Score for Chest Pain Response (Comments) Value History Highly Suspicious 2 ECG Nonspecific Repolarizatio 1 Age >45 - < 65 1 Risk Factors >3 Risk Factors or Hx CAD 2 Troponin < Normal Limit 0 Total 6 Risk Factors: Risk Factors: DM, Current or recent (<one month) smoker, HTN, HLP, family history of CAD, obesity. Risk Scores: Score 0 - 3: 2.5% MACE over next 6 weeks - Discharge Home Score 4 - 6: 20.3% MACE over next 6 weeks - Admit for Clinical Observation Score 7 - 10: 72.7% MACE over next 6 weeks - Early Invasive Strategies Course & Med Decision Making: Course & Med Decision Making Pertinent Labs and Imaging studies reviewed. (See chart for details) Pt is a 50 year old male with PMH of HIV, HTN, and MT s/p stent and "pacemaker" who presented via EMS after cardiac arrest at home. Pt was shocked with AED 1 time at home. Pt agonally breathing and unresponsive upon arrival in ED. BP e levated at 220s/150s. Decision to intubate patient despite oxygen saturation in 90s due to agonal breathing and decreased mentation. ETT initially deep but was retracted with improved repeat CXR. Partner not concerned for co-ingestions but admitted pt had a few drinks of Smirnoff Ice at home prior to event. Toxicology positive for cocaine. Lactate elevated at 5.3. Other labs obtained and posted to chart. EKG with LBBB noted. Unclear if new vs old. CT head without acute process. NGT placed with confirmation of good positioning. CXRs with signs of pneumonitis vs aspiration vs infectious etiology. Given hx of HIV, rapid influenza obtained and negative. Rapid COVID-19 obtained and pending given possible need for cardiac catheterization. Hypokalemia addressed through OGT. Discussed case with Dr. Rayo (cardiology) who is in agreement with consultation. Requests heparin bolus/gtt. ASA suppository placed. SIRS criteria noted upon arrival with tachycardia and elevated WBC. Lactic acid elevated. CXRs noted atelecatesis vs bibasilar infiltrate. IV fluid hydration given. Empiric antibiotic initiated. Cannot fully exclude sepsis- specifically septic shock given lactic acid > 4. Patient requiring transfer for admission for further evaluation and treatment. Discussed with Dr. Dias (hospitalist at [facility]) who is in agreement with transfer for ICU admission at [facility]. Discussed findings and plan with patient's partner, who acknowledges understanding and agreement. Dragon Disclaimer: Dragon Disclaimer: This electronic medical record was generated, in whole or in part, using a voice recognition dictation system. Departure Departure: Impression: Primary Impression: Cardiopulmonary arrest with successful resuscitation Additional Impressions: Lactic acidosis Cocaine abuse Hypokalemia Atypical pneumonia Septic shock Hypertension Qualified Codes: I10 - Essential (primary) hypertension Disposition: DC/TRF OTHER TYPE INSTITUTI ([facility]- Dr. Dias (Hospitalist) accepting of admission to ICU ) Condition: CRITICAL Referrals: PCP,UNKNOWN (PCP) Intubation Intubation : Intubation Method: orotracheal Tube Size (cm): 8.0 Breath Sounds after Intubation: equal Intubation Complications: O2 saturation decreased Post Intubation Xray: Yes Progress/Xray Impression: ETT tip at prosper, retracted 2cm (22cm at gum line) with repeat XR Progress Emergent consent obtained. Time out performed. Hand hygiene utilized. Manual respirations with bag valve mask. RSI initiated with 50mg of Rocuronium and 20mg of Etomidate. 8.0 cuffed ETT successfully placed under Glidescope visualization and marked 24cm at gum line. Patient did desaturate during intubtaion attempt but quickly recovered with bag valve masking with ETT. ETT secured. Equal chest rise and breath sounds noted. NO sounds with ausculation to epigastrum. CXR obtained with findings of ETT tip at prosper. Patient had started to desaturate despite adequate ventiltor settings. ETT retracted 2cm and marked 22cm at gum line. O2 saturation with interval improvement. Critical Care Time Critical care time was 30 minutes which includes time at bedside, spent in discussion of patient's care with specialists and/or family members, with inte rpretation of laboratory and/or radiological studies and is exclusive of procedures. Sepsis Assessment Date and Time of Assessment Date: Aug 27, 2020 Time: 01:30 Fluid Challenge: Is the fluid challenge complet: No IBW Target Volume Used: No BMI > 30: No Vital Signs Vital Signs Vital Signs Date Time Temp Pulse Resp B/P (MAP) Pulse Ox O2 Delivery O2 Flow Rate FiO2 08/26/20 23:06 98 08/26/20 22:24 127 226/156 08/26/20 21:29 97.7 14 Bag Valve Mask Temperature Source: Axillary Respirations Respiratory Effort: Mechanical ventilation Cardiovascular Pulse Rhythm: Irregular Heart: S1 and S2 normal Lung Sounds Breath Sounds: Clear Capillary Refill Capillary Refill: Rt Hand < 3 seconds Peripheral Pulse Pulse Location: Radial Pulse Strength: Normal (2+) Pulse Assessment Method: Palpation Integumentary Skin: Warm, Dry Skin Moisture: Dry Skin Turgor: Normal Skin Color: warm, dry Fingernail Color: WNL CASSIUS ESPOSITO DO Aug 26, 2020 22:41
[2020-08-26 22:42] LABS: CALCIUM 8.5 mg/dL (8.5-10.1); GFR 94.9; POTASSIUM 3.1 mmol/L (3.5-5.1)
[2020-08-26 22:44] LABS: BASO # 0.1 x10^3/uL (0.0-0.2); BASO % 0 % (0-3); EOS # 0.1 x10^3/uL (0.0-0.7); EOS % 1 % (0-3); HEMATOCRIT 32.8 % (39.0-53.0); LYMPH % 56 % (24-48); MEAN CORPUSCULAR HEMOGLOBIN 25 pg (25-35); MEAN CORPUSCULAR HGB CONC 30 g/dL (31-37); MEAN CORPUSCULAR VOLUME 83 fL (79-100); MONO # 0.8 x10^3/uL (0.0-1.1); MONO % 6 % (0-9); NEUT # 4.5 x10^3uL (1.8-7.7); NEUT % 36 % (31-73); PLATELET COUNT 387 x10^3/uL (140-400); RED BLOOD COUNT 3.96 x10^6/uL (4.30-5.70); WHITE BLOOD COUNT 12.5 x10^3/uL (4.0-11.0)
--- NOTE | 2020-08-26 22:45 | EKG ---
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
[2020-08-26 23:00] LABS: ALBUMIN 2.9 g/dL (3.4-5.0); ALBUMIN/GLOBULIN RATIO 0.7 (1.0-1.7); TOTAL BILIRUBIN 0.2 mg/dL (0.2-1.0); TOTAL PROTEIN 7.1 g/dL (6.4-8.2)
[2020-08-26 23:01] LABS: BGAS PH 7.31 (7.35-7.46)
[2020-08-26 23:11] LABS: PLT ESTIMATE ADEQUATE (ADEQUATE)
[2020-08-26] MEDS ORDERED: MIDAZOLAM HCL PF 5 MG/5 ML VIAL. ONE (23:36)
[2020-08-26 23:37] LABS: AMPHETAMINE/METHAMPHETAMINE NEG (NEG); BARBITURATES NEG (NEG); BENZODIAZEPINES NEG (NEG); CANNABINOIDS NEG (NEG); COCAINE POS (NEG); METHADONE NEG (NEG); OPIATES NEG (NEG); PHENCYCLIDINE NEG (NEG)
[2020-08-26] MEDS ORDERED: MIDAZOLAM HCL PF 5 MG/5 ML VIAL. IV ONE (23:45)
--- NOTE | 2020-08-27 00:10 | RAD ---
PQRS Compliance Statement: One or more of the following individualized dose reduction techniques were utilized for this examinat ion: 1. Automated exposure control 2. Adjustment of the mA and/or kV according to patient size 3. Use of iterative reconstruction technique CT head without contrast 08/26/2020 11:24 PM INDICATION: Cardiopulmonary arrest COMPARISON: CT head 11/13/2018 TECHNIQUE: Multiple axial CT images of the head were obtained from skull base through the vertex with out intravenous contrast. FINDINGS: Head: Ventricles, sulci and basal cisterns are within normal limits. There is no hydrocephalus. Dhaliwal-white matter differentiation is normal. There is no acute intracranial hemorrhage. There is no mass, mass e ffect or midline shift. Posterior fossa is normal in appearance. Visualized portions of the orbits are normal. Paranasal sinuses are well aerated. Mastoid air cells a re well aerated. Scalp and calvaria are normal. And mild hazy attenuation identified along the superi or margin the right parotid gland, incompletely profiled on this examination. IMPRESSION: No acute intracranial hemorrhage. No definite cerebral edema is identified. Minimal hazy attenuation within the superior aspect of the right parotid gland is only partially prof iled. Correlate with any local inflammatory changes. Electronically signed by: Dea Orellana MD (08/27/2020 12:07 AM) [facility]
[2020-08-27 00:17] LABS: BACTERIA,URINE 0 /HPF (0-FEW); BILIRUBIN,URINE NEG (NEG); CLARITY,URINE CLEAR; COLOR,URINE YELLOW; GLUCOSE,URINE NEG (NEG); NITRITE,URINE NEG (NEG); RBC,URINE 0 /HPF (0-2); SQUAMOUS EPITHELIAL CELL,UR OCC /LPF; UROBILINOGEN,URINE 0.2 mg/dL (0.2 mg/dL); WBC,URINE OCC /HPF (0-4)
[2020-08-27] MEDS ORDERED: LIDOCAINE 2% VISCOUS 15 ML SOLUTION. ONE (00:22)
[2020-08-27 00:27] LABS: INFLUENZA A PATIENT NEGATIVE (NEGATIVE); INFLUENZA B PATIENT NEGATIVE (NEGATIVE)
[2020-08-27] MEDS ORDERED: PIPERACILLIN/TAZOBACTAM 4.5 GM in IV NORMAL SALINE 50ML 50 ML IV ONE (00:30)
[2020-08-27] MEDS ORDERED: ASPIRIN RECTAL 300 MG SUPP. PR ONE (00:30)
[2020-08-27] MEDS ORDERED: PIPERACILLIN/TAZOBACTAM 4.5 GM VIAL IV ONE (00:39)
[2020-08-27] MEDS ORDERED: IV NORMAL SALINE 50ML 50 ML ONE (00:39)
[2020-08-27] MEDS ORDERED: POTASSIUM BICARB 20 MEQ EFFERVESCENT TABLET. ONE (00:43)
[2020-08-27] MEDS ORDERED: HEPARIN 25,000UTS/250ML PREMIX 250 ML IV PRN (01:15)
[2020-08-27] MEDS ORDERED: HEPARIN for IV BOLUS 10,000 UNIT/10 ML VIAL. IV ONE (01:15)
--- NOTE | 2020-08-27 01:18 | EKG ---
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
[2020-08-27] MEDS ORDERED: POTASSIUM BICARB 20 MEQ EFFERVESCENT TABLET. NG ONE (01:30)
[2020-08-27] MEDS ORDERED: MIDAZOLAM HCL PF 5 MG/5 ML VIAL. IV ONE ×3 (01:45→03:30)
[2020-08-27] MEDS ORDERED: ROCURONIUM 50 MG/5 ML VIAL. IV ONE (02:00)
[2020-08-27] MEDS ORDERED: ETOMIDATE 40 MG/20 ML VIAL. INJ ONE (02:00)
--- NOTE | 2020-08-27 02:19 | RAD ---
XR CHEST 1V, XR ABDOMEN 1V 08/27/2020 1:47 AM INDICATION: NG tube placement COMPARISON: 08/18/2020 TECHNIQUE: Portable frontal view of the chest is provided. 2 supine views of abdomen are provided. FINDINGS: The cardiomediastinal silhouette is enlarged, stable. Left chest wall cardiac monitoring device is no nieves. Endotracheal tube is in similar position. Nasogastric tube is identified with the side port proj ecting over the gastric lumen. Perihilar predominantly interstitial airspace disease is noted with fr uit aeration of the lung bases compared to prior examination. No pleural effusions or pneumothorax. There is moderate distention of the stomach. Dilated small bowel loops identified in the central abdo men measuring up to 3.4 cm. No suspicious osseous abnormality. IMPRESSION: 1. Improved aeration of the lungs compared to prior examination with persistent perihilar interstitia l changes as may be seen with interstitial edema or interstitial pneumonitis. Stable cardiomegaly. 2. Endotracheal tube is in similar position. 3. Nasogastric tube is identified with side port at the gastric lumen. Moderate gaseous distention of stomach is noted. 4. Dilated small bowel loops in the central abdomen may represent ileus versus developing small bowel obstruction. Short-term follow-up radiographs could be of benefit. Electronically signed by: Dea Orellana MD (08/27/2020 2:16 AM) [facility]
== END 2020-08-27 02:40 | disposition short-term general hospital (02) ==
LOC: ER 21:29
DX: I46.9 Cardiac arrest, cause unspecified (principal); E87.2 Acidosis; F14.10 Cocaine abuse, uncomplicated; E87.6 Hypokalemia; J18.9 Pneumonia, unspecified organism; A41.9 Sepsis, unspecified organism; R65.21 Severe sepsis with septic shock; I10 Essential (primary) hypertension; I25.10 Atherosclerotic heart disease of native coronary artery without angina pectoris; I25.2 Old myocardial infarction; F17.210 Nicotine dependence, cigarettes, uncomplicated; Z20.828 Contact with and (suspected) exposure to other viral communicable diseases; Z95.0 Presence of cardiac pacemaker; F10.20 Alcohol dependence, uncomplicated; Y90.0 Blood alcohol level of less than 20 mg/100 ml
CPT/HCPCS: 31500; 36415; 51702; 70450; 71045; 74018; 80053; 80307; 81001; 82553; 82803; 83605; 83690; 83735; 83880; 84484; 85025; 85610; 85730; 87040; 87426; 87804; 93005; 96361; 96365; 96368; 96375; 96376; 99291; C9803; G0480; J1644; J2250; J2543; J3010; J3490; J7030; U0003